=== PATIENT | female | born 1945 | race American Indian/Alaskan Native ===

== ENCOUNTER 2018-05-08 03:28 | Inpatient (IN) | payer MEDICARE, OTHER ==
--- NOTE | 2018-05-08 04:13 | C.PDOC ---
History Of Present Illness 72 year old female with PMHx of HTN presents to the ED c/o chest pain and abdominal pain that started tonight at 12 midnight. Patient states she woke up from sleep with chest pain, abdominal pain associated with nausea, vomiting. Patient reports this is the first time she has these symptoms. Patient past surgeries consist of hysterectomy and gallstones removal. Patient currently taking Lisinopril. Patient denies fever, chill, diarrhea, back pain, dysuria, hematuria. Time Seen by Provider: 05/08/18 03:32 Chief Complaint (Nursing): Chest Pain History Per: Patient History/Exam Limitations: no limitations Onset/Duration Of Symptoms: Hrs (midnight) Current Symptoms Are (Timing): Still Present Quality: "Pain" Associated Symptoms: Nausea Modifying Factors: None Exacerbating Factors: None Additional History Per: Patient Past Medical History Reviewed: Historical Data, Nursing Documentation, Vital Signs Vital Signs: Last Vital Signs Temp 97.6 F 05/08/18 03:36 Pulse 89 05/08/18 06:22 Resp 24 05/08/18 06:22 BP 181/75 H 05/08/18 06:22 Pulse Ox 98 05/08/18 06:48 - Medical History PMH: Gall Bladder Disease, HTN Denies: Chronic Kidney Disease Other Surgeries: hysterectomy, gallstones Family History: States: Unknown Family Hx - Social History Hx Alcohol Use: No Hx Substance Use: No - Immunization History Hx Tetanus Toxoid Vaccination: No Hx Influenza Vaccination: No Hx Pneumococcal Vaccination: No Review Of Systems Constitutional: Negative for: Fever, Chills Cardiovascular: Positive for: Chest Pain. Negative for: Palpitations Respiratory: Negative for: Cough, Shortness of Breath Gastrointestinal: Positive for: Nausea, Vomiting, Abdominal Pain. Negative for : Diarrhea Genitourinary: Negative for: Dysuria, Hematuria Musculoskeletal: Negative for: Back Pain Skin: Negative for: Rash Neurological: Negative for: Weakness, Numbness, Headache, Dizziness Physical Exam - Physical Exam Appears: Non-toxic, No Acute Distress Skin: Normal Color, Warm, Dry Head: Atraumatic, Normacephalic Eye(s): bilateral: Normal Inspection Oral Mucosa: Moist Neck: Normal ROM, Supple Chest: Symmetrical, Tenderness (anterior chest wall) Cardiovascular: Rhythm Regular Respiratory: Normal Breath Sounds, No Rales, No Rhonchi, No Wheezing Gastrointestinal/Abdominal: Soft, Tenderness (epigastrum), No Guarding, No Rebound Extremity: Normal ROM, No Tenderness, No Swelling Neurological/Psych: Oriented x3, Normal Speech Gait: Steady ED Course And Treatment - Laboratory Results Result Diagrams: 05/08/18 04:32 05/08/18 04:32 ECG: Interpreted By Me, Viewed By Me ECG Rhythm: Sinus Rhythm Interpretation Of ECG: no ischemic changes. NJ- 166. QRS - 80. Qt/Qtc - 396/ 489. P-r-t - 47 11 41 Rate From EC (BPM) O2 Sat by Pulse Oximetry: 98 (ON RA) Pulse Ox Interpretation: Normal - Radiology CXR: Interpreted by Me, Viewed By Me CXR Interpretation: Yes: Mediastinum (slightly wide), Other (pleural effusion on the right ). No: Infiltrates - CT Scan/US CTA chest.abd Other Rad Studies (CT/US): Read By Radiologist, Radiology Report Reviewed CT/US Interpretation: EXAM: CT Angiography Chest With and without Intravenous Contrast. CLINICAL HISTORY: 72 years old, female; Pain; Chest pain; Abdominal pain; Epigastric; Additional info: Abd pain. TECHNIQUE: Axial computed tomographic angiography images of the chest with and without intravenous contrast. using CT angiography protocol. [address] All [address] scans at this facility use at least one of these dose optimization techniques: automated. exposure control; mA and/or kV adjustment per patient size ( includes targeted exams where dose is. matched to clinical indication); or iterative reconstruction. Coronal and sagittal reformatted images were created and reviewed. MIP reconstructed images were created and reviewed. COMPARISON: No relevant prior studies available. FINDINGS: Other findings: Trace pericardial effusion. The aorta demonstrates calcified plaque and is mildly. ectatic but normal in caliber. Pulmonary arteries: The pulmonary artery enhancement is less than 195 Hounsfield units without. definite filling defect to suggest pulmonary embolus. Lungs: Mild parabronchial cuffing, hazy infiltration of the lung bases which can be seen with. bronchitis, reactive airway disease or viral pneumonitis versus mild failure. COPD. IMPRESSION: 1. Mild parabronchial cuffing, hazy infiltration of the lung bases which can be seen with bronchitis,. reactive airway disease or viral pneumonitis versus mild failure. 2. The pulmonary artery enhancement is less than 195 Hounsfield units without definite filling defect. to suggest pulmonary embolus. CLARK PEGUERO | Preliminary Radiology Report. EXAM: CT Angiography Abdomen and Pelvis Without And With Intravenous Contrast. EXAM DATE/TIME: 05/08/2018 4:05 AM. CLINICAL HISTORY: 72 years old, female; Pain; Chest pain; Abdominal pain; Epigastric; Additional info: Abd pain. TECHNIQUE: Axial computed tomographic angiography images of the abdomen and pelvis without and with. intravenous contrast material, including non-contrast images if performed. MIP and/or 3D reconstructed images were created and reviewed. All CT scans at this facility use at least one of these dose optimization techniques: automated. exposure control; mA and/or kV adjustment per patient size (includes targeted exams where dose is. matched to clinical indication); or iterative reconstruction. Coronal and sagittal reformatted images were created and reviewed. MIP reconstructed images were created and reviewed. 971 images are submitted. COMPARISON: No relevant prior studies available. FINDINGS: Lungs: Normal. No consolidation. VASCULATURE: Aorta: The aorta demonstrates calcified plaque and is mildly ectatic but normal in caliber. Celiac Trunk and Mesenteric Arteries: No occlusion or significant stenosis. Renal Arteries: No occlusion or significant stenosis. Iliac Arteries: No occlusion or significant stenosis. Common Femoral Arteries: No occlusion or significant stenosis. ABDOMEN: Liver: Fatty liver. Gallbladder and bile ducts: There are renal hypodensities too small to. characterize.Cholecystectomy. Pancreas: Unremarkable. No mass. No ductal dilation. Spleen: Unremarkable. No splenomegaly. Adrenals: Unremarkable. No mass. Kidneys and ureters: Unremarkable. No solid mass. No hydronephrosis. Stomach and bowel: There is left upper quadrant splenic flexure diverticulosis with minimal. haziness seen on image 99 series 6 suspicious for early acute diverticulitis. Appendix: The appendix demonstrates diffuse distention, consistent with acute appendicitis. The. appendix measures 1.1 cm cm with appendicolith. PELVIS: PEGUERO, CLARK | Preliminary Radiology Report. CONFIDENTIALITY STATEMENT. This report is intended only for the use of the referring physician, and only in accordance with law, If you received this in error, call [phone]. Page 3 of 3. Bladder: Urachal remanent involving the bladder dome. There is nonspecific bladder wall. thickening. This may be related to incomplete distention. Reproductive: Hysterectomy. ABDOMEN and PELVIS: Intraperitoneal space: Pelvic phleboliths. Bones/joints: Multilevel vacuum degenerative disc disease. Soft tissues: There is a fat-containing umbilical hernia. Lymph nodes : Unremarkable. No enlarged lymph nodes. IMPRESSION: 1. There is left upper quadrant splenic flexure diverticulosis with minimal haziness seen on image 99. series 6 suspicious for early acute diverticulitis. 2. The appendix demonstrates diffuse distention, consistent with acute appendicitis. The. appendix measures 1.1 cm cm with appendicolith. Thank you for allowing us to participate in the care of your patient. Dictated and Authenticated by: Traci Jackson MD. 05/08/2018 6:45 AM Eastern Time ([place] & [place]) Medical Decision Making Medical Decision Making: Plan: * CTA chest * CXR * Labs * white count 10.4 * HB - 13 * Bicarb - 21 * Fluids * Fentanyl 50 mcg IVP * UA * negative acute appendicitis on ct a/p; abx ordered; case discussed with surgical technologist Disposition Counseled Patient/Family Regarding: Diagnosis - Disposition Disposition: HOSPITALIZED Disposition Time: 06:56 Condition: GUARDED Forms: [employer] (Hungarian) - Clinical Impression Clinical Impression: Appendicitis - Scribe Statement The provider has reviewed the documentation as recorded by the Scribe Zachary Gmoez All medical record entries made by the Scribe were at my direction and personally dictated by me. I have reviewed the chart and agree that the record accurately reflects my personal performance of the history, physical exam, medical decision making, and the department course for this patient. I have also personally directed, reviewed, and agree with the discharge instructions and disposition.
[2018-05-08 04:39] LABS: BASO % 0.4 % (0.0-2.0); EOS % 0.1 % (0.0-4.0); LYMPH # 2.5 K/uL (1.0-4.3); LYMPH % 24.2 % (20.0-40.0); MEAN CELL VOLUME 93.7 fL (81.0-99.0); MEAN CORPUSCULAR HEMOGLOBIN 31.8 pg (27.0-31.0); MONO # 0.5 K/uL (0.0-0.8); NEUT # 7.3 K/uL (1.8-7.0); NEUT % 70.3 % (50.0-75.0); NRBC % 0.1 % (0.0-2.0); RBC 4.08 Mil/uL (3.80-5.20); RED CELL DISTRIBUTION WIDTH 14.5 % (11.5-14.5); WHITE BLOOD COUNT 10.4 K/uL (4.8-10.8)
[2018-05-08 04:40] LABS: SQUAMOUS EPITHIAL < 1 /hpf (0-5); URINE BACTERIA OCC (<OCC); URINE BILIRUBIN NEGATIVE (NEGATIVE); URINE BLOOD 1+ (NEGATIVE); URINE CLARITY Clear (Clear); URINE COLOR Yellow (YELLOW); URINE GLUCOSE (UA) NORMAL (Normal); URINE LEUKOCYTE ESTERASE NEG Leu/uL (Negative); URINE PROTEIN 1+ mg/dL (NEGATIVE); URINE UROBILINOGEN NORMAL mg/dL (0.2-1.0)
[2018-05-08 04:47] LABS: ALBUMIN 4.7 g/dL (3.5-5.0); ALT/SGPT 27 U/L (9-52); AST/SGOT 20 U/L (14-36); BLOOD UREA NITROGEN 13 mg/dL (7-17); CALCIUM 9.8 mg/dl (8.6-10.4); GFR NON-AFRICAN AMERICAN > 60; LIPASE 172 U/L (23-300)
[2018-05-08] MEDS ORDERED: Iodixanol 320 mg/ml 150 ml Bottle IV ONE (04:54)
[2018-05-08] MEDS ORDERED: metroNIDAZOLE IV 500 mg/100 ml 500 MG/100 ML BAG IVPB STA (06:55)
[2018-05-08] MEDS ORDERED: metroNIDAZOLE IV 500 mg/100 ml 500 MG/100 ML BAG ONE ×2 (07:06→15:20)
[2018-05-08] MEDS ORDERED: Labetalol 5mg/ml (4ml) IVP ONE (08:15)
--- NOTE | 2018-05-08 08:30 | CP.PCM.CON ---
<Kofi Brennan - Last Filed: 05/08/18 08:54> History of Present Illness - History of Present Illness History of Present Illness: Gen Sx Consult: Dr Watt Re: Appendicitis 70yo female with history of hypertension presents with new onset epigastric abdominal pain/discomfort predominating on left side and radiating to back. the discomfort began at around midnight last night, at which point patient went to have a bowel movement, the movement was normal, but the simultaneous discomfort brought on vomiting. Emesis consisted of previous meal and was non-billious with no blood. Patient states that she previously experience similar symptoms once before, but that it resolved on its own; this episode has lasted longer and will not go away. Nothing seems to make it better or worse. The only intervention that the patient has made is massage of the affected area. Patient denies fever, but does admit to feeling a little chilled. She also admits to headache an light headedness with standing, as well as increased urinary frequency. She denies palpitations, difficulty breathing, diarrhea, constipation , numbness/tingling. Patient's last oral intake was a 7pm last night, she denies eating any new/unusual foods and any recent travel. CT scan in ED demonstrated inflammation of splenic flexure as well as dilated and inflammed appendix 1.1cm with appendicolith PMHx: Hypertension PSHx: hysterectomy, cholecystectomy Family Hx: Sisters- DM, ovarian cancer, colon cancer, breast cancer Social Hx: denies ETOH, tobacco, and Drug use Home Meds: Asprin, Lisinopril Allergies: noncontributory Review of Systems - Review of Systems All systems: reviewed and no additional remarkable complaints except (as per hpi ) - Cardiovascular Cardiovascular: absent: Chest Pain, Palpitations - Respiratory Respiratory: absent: Dyspnea - Gastrointestinal Gastrointestinal: Abdominal Pain, Vomiting. absent: Constipation, Diarrhea, Hematemesis - Genitourinary Genitourinary: Urinary Frequency - Musculoskeletal Additional comments: Pain on T7 spinous processes and paraspinal muscles at that level Past Patient History - Infectious Disease Hx of Infectious Diseases: None - Past Social History Smoking Status: Never Smoked - CARDIAC Hx Hypertension: Yes - PULMONARY Hx Respiratory Disorders: No - NEUROLOGICAL Hx Neurological Disorder: No - HEENT Hx HEENT Problems: No - RENAL Hx Chronic Kidney Disease: No - ENDOCRINE/METABOLIC Hx Endocrine Disorders: No - HEMATOLOGICAL/ONCOLOGICAL Hx Blood Disorders: No - INTEGUMENTARY Hx Dermatological Problems: No - MUSCULOSKELETAL/RHEUMATOLOGICAL Hx Musculoskeletal Disorders: No - GASTROINTESTINAL Hx Gall Bladder Disease: Yes - GENITOURINARY/GYNECOLOGICAL Hx Genitourinary Disorders: No - PSYCHIATRIC Hx Substance Use: No - SURGICAL HISTORY Hx Surgeries: Yes Hx Hysterectomy: Yes Other/Comment: GALLSTONES REMOVED - ANESTHESIA Hx Anesthesia: Yes Meds Home Medications: Home Medication List Medication Instructions Recorded Confirmed Type Ciprofloxacin/Ciprofloxa HCl 500 mg PO BID #16 tbmp.24hr 05/09/18 Rx [Cipro Xr 500 mg Tablet] Metronidazole [Flagyl] 500 mg PO BID #16 tablet 05/09/18 Rx Allergies/Adverse Reactions: Allergies Allergy/AdvReac Type Severity Reaction Status Date / Time No Known Allergies Allergy Unverified 05/08/18 03:39 Physical Exam - Constitutional Appears: No Acute Distress - Head Exam Head Exam: ATRAUMATIC, NORMAL INSPECTION, NORMOCEPHALIC - Eye Exam Eye Exam: Normal appearance - ENT Exam ENT Exam: Mucous Membranes Moist - Respiratory Exam Respiratory Exam: Clear to Auscultation Bilateral, NORMAL BREATHING PATTERN. absent: Rales, Rhonchi, Wheezes, Respiratory Distress - Cardiovascular Exam Cardiovascular Exam: REGULAR RHYTHM, +S1, +S2. absent: Tachycardia, Rubs - GI/Abdominal Exam GI & Abdominal Exam: Normal Bowel Sounds, Soft, Tenderness. absent: Rebound, Rigid Additional comments: Tenderness to deep palpation in RLQ, and mild tenderness in left epigastrium - rebound, -rovsings, -psoas - Extremities Exam Extremities exam: Negative for: pedal edema - Back Exam Back exam: paraspinal tenderness, tenderness Additional comments: Tenderness at level of T7 - Psychiatric Exam Psychiatric exam: Normal Affect, Normal Mood - Skin Skin Exam: Dry, Normal Color, Warm Results - Vital Signs Recent Vital Signs: Last Vital Signs Temp 97.6 F 05/08/18 03:36 Pulse 90 05/08/18 08:01 Resp 16 05/08/18 08:01 BP 185/74 H 05/08/18 08:01 Pulse Ox 96 05/08/18 08:01 - Labs Result Diagrams: 05/08/18 04:32 05/08/18 04:32 Labs: Laboratory Results - last 24 hr 09/11/18 09/11/18 09/11/18 04:32 04:32 04:32 WBC 10.4 RBC 4.08 Hgb 13.0 Hct 38.2 MCV 93.7 MCH 31.8 H MCHC 34.0 RDW 14.5 Plt Count 199 MPV 9.0 Neut % (Auto) 70.3 Lymph % (Auto) 24.2 Ellis % (Auto) 5.0 Eos % (Auto) 0.1 Baso % (Auto) 0.4 Neut # (Auto) 7.3 H Lymph # (Auto) 2.5 Ellis # (Auto) 0.5 Eos # (Auto) 0.0 Baso # (Auto) 0.0 Sodium 140 Potassium 4.6 Chloride 104 Carbon Dioxide 21 L Anion Gap 20 BUN 13 Creatinine 0.9 Est GFR ( Amer) > 60 Est GFR (Non-Af Amer) > 60 Random Glucose 159 H Calcium 9.8 Total Bilirubin 0.4 AST 20 ALT 27 Alkaline Phosphatase 82 Troponin I < 0.0120 NT-Pro-B Natriuret Pep 66.0 Total Protein 9.3 H Albumin 4.7 Globulin 4.7 H Albumin/Globulin Ratio 1.0 Lipase 172 Urine Color Yellow Urine Clarity Clear Urine pH 8.0 Ur Specific [place] 1.015 Urine Protein 1+ H Urine Glucose (UA) Normal Urine Ketones Trace Urine Blood 1+ H Urine Nitrate Negative Urine Bilirubin Negative Urine Urobilinogen Normal Ur Leukocyte Esterase Neg Urine WBC (Auto) < 1 Urine RBC (Auto) 6 H Ur Squamous Epith Cells < 1 Urine Bacteria Occ H Assessment & Plan - Assessment and Plan (Free Text) Assessment: 70yo female with acute appendicitis Plan: Admit to medicine NPO IV fluids IV abx optimize BP OR this afternoon for lap appendectomy d/w Dr Alysa Brennan, PGy4 <Vicente Watt B - Last Filed: 05/13/18 13:49> Results - Vital Signs Recent Vital Signs: Last Vital Signs Temp 98.5 F 05/09/18 07:00 Pulse 86 05/09/18 09:04 Resp 20 05/09/18 07:00 BP 146/74 05/09/18 09:04 Pulse Ox 99 05/09/18 07:00 - Labs Result Diagrams: 05/09/18 08:16 05/09/18 08:16 Attending/Attestation - Attestation I have personally seen and examined this patient.: Yes I have fully participated in the care of the patient.: Yes I have reviewed all pertinent clinical information: Yes Notes (Text): Pt was seen and examined at bedside Agree with above note and assessment Pt with RLQ pain and nausea Abdomen : soft, tender in RLQ Labs and radiology reviewed Ass: Acute Appendicitis with Leucocytosis Plan : Lap Appendectomy possible Open Consent NPO, IVF IV antibiotics Plan d.w pt in detail Risk and benefit explained in detail.
[2018-05-08] MEDS ORDERED: Metoprolol 1 mg/ml Inj IVP PRN (09:53)
[2018-05-08] MEDS ORDERED: Dextrose 50% SYRINGE Inj (50 ml) IV PRN (09:57)
[2018-05-08] MEDS ORDERED: Glucagon Recombinant 1 mg Inj IM PRN (09:57)
[2018-05-08] MEDS ORDERED: Dextrose 50% SYRINGE Inj (50 ml) IVP PRN (09:57)
[2018-05-08 10:06] LABS: INR 1.1
[2018-05-08] MEDS: Sodium Chloride 0.9% 1,000 ML IV SCH (10:22)
[2018-05-08 10:56] LABS: CK-MB 1.26 ng/mL (0.0-3.38); TROPONIN I 0.039 ng/mL (0.00-0.120)
--- NOTE | 2018-05-08 11:08 | CT ---
Date of service: 05/08/18 CTA chest, abdomen, pelvis protocol Indication: Abdominal pain Technique: Contiguous axial images were obtained through the chest, abdomen, pelvis with intravenous contrast enhancement. Sagittal and coronal reconstructions were generated and reviewed. This CT exam was performed using 1 or more of the following dose reduction techniques: Automated exposure control, adjustment of the MAA and/or kV according to patient size, and/or use of iterative reconstruction technique. IV Contrast: 100 mL Visipaque Radiation dose (DLP): 2437.71 MGy-cm. Comparison: No prior Findings: Visualized portions of the inferior thyroid gland appear unremarkable. The mediastinal and hilar vascular structures appear within normal limits. The heart appears within normal limits of size. The pulmonary artery enhancement is less than 195 HU. No definite filling defect to suggest central pulmonary embolus. Mild peribronchial coughing, hazy infiltration of the lung bases which may be seen with bronchitis, reactive airway disease, or viral pneumonitis versus mild CHF. Mild bibasilar atelectasis. No pleural effusion. No pneumothorax. Atherosclerotic calcifications of thoracic and abdominal aorta and branches. No evidence of aneurysmal dilatation the aorta or dissection. No occlusion or significant stenosis is identified involving the celiac artery origin, the superior mesenteric artery origin, the inferior mesenteric artery origin, or bilateral renal arteries. Cholecystectomy. The liver, pancreas, spleen, and adrenal glands appear unremarkable. The kidneys enhance symmetrically. No hydronephrosis or obstructing calculus identified. Bowel loops appear within normal limits of caliber. Diverticulosis with minimal haziness in the left upper quadrant near the splenic flexure ; correlate for possibility of early acute diverticulitis. No secondary signs of acute appendicitis. Dilated appendix measuring approximately 1.1 cm. Appendicolith present. Appearance consistent with acute appendicitis. Small fat containing umbilical hernia. The uterus is absent consistent with hysterectomy. Urinary bladder is under distended. Urachal remnant. Degenerative changes. Impression: Findings consistent with acute appendicitis as above. Question mild early acute diverticulitis. Urachal remnant.Patients with a urachal remnant are at increased risk for adenocarcinoma of the bladder. The pulmonary artery enhancement is less than 195 HU. No definite filling defect to suggest central pulmonary embolus. Mild peribronchial coughing, hazy infiltration of the lung bases which may be seen with bronchitis, reactive airway disease, or viral pneumonitis versus mild CHF. Additional findings as above. Preliminary impression was provided by virtual radiologic.
--- NOTE | 2018-05-08 11:25 | RAD ---
HISTORY: abd pain COMPARISON: None available. TECHNIQUE: Chest, one view. FINDINGS: Examination markedly limited by habitus. LUNGS: Mild bibasilar atelectasis. Mild prominent interstitial markings. Please note that chest x-ray has limited sensitivity for the detection of pulmonary masses. PLEURA: No significant pleural effusion identified. No definite pneumothorax . CARDIOVASCULAR: Heart size appears borderline. Ectatic aorta. Atherosclerotic calcifications of the aorta. OSSEOUS STRUCTURES: Degenerative changes. VISUALIZED UPPER ABDOMEN: Unremarkable. OTHER FINDINGS: None. IMPRESSION: Mildly prominent interstitial markings. Mild bibasilar atelectasis.
--- NOTE | 2018-05-08 12:37 | CARD ---
APPROVED REPORT Date of service: 05/08/2018 EXAM: Two-dimensional and M-mode echocardiogram with Doppler and color Doppler. Other Information Quality : GoodRhythm : INDICATION Pericardial Effusion Pre-Op RISK FACTORS Hypertension 2D DIMENSIONS IVSd1.1 (0.7-1.1cm)LVDd3.3 (3.9-5.9cm) PWd1.2 (0.7-1.1cm)LVDs2.3 (2.5-4.0cm) FS (%) 31.3 %LVEF (%)60.4 (>50%) M-Mode DIMENSIONS Left Atrium (MM)3.72 (2.5-4.0cm)IVSd0.80 (0.7-1.1cm) Aortic Root3.42 (2.2-3.7cm)LVDd4.12 (4.0-5.6cm) Aortic Cusp Exc.2.09 (1.5-2.0cm)PWd0.95 (0.7-1.1cm) FS (%) 39 %LVDs2.53 (2.0-3.8cm) LVEF (%)69 (>50%) Mitral Valve MV E Wyfhtupb53.4cm/sMV A Rhixemen193.5cm/sE/A ratio0.6 TDI E/Lateral E'0.0E/Medial E'0.0 Tricuspid Valve TR Peak [id number]/sTR Peak Gr.[id number] LEFT VENTRICLE The left ventricle is normal size. There is normal left ventricular wall thickness. The left ventricular function is normal. The left ventricular ejection fraction is within the normal range. There is normal LV segmental wall motion. Transmitral Doppler flow pattern is Grade I-abnormal relaxation pattern. No left ventricle thrombus noted on this study. There is no ventricular septal defect visualized. There is no left ventricular aneurysm. There is no mass noted in the left ventricle. RIGHT VENTRICLE The right ventricle is normal size. There is normal right ventricular wall thickness. The right ventricular systolic function is normal. ATRIA The left atrium size is normal. The right atrium size is normal. AORTIC VALVE The aortic valve is calcified but opens well. No aortic regurgitation is present. There is no aortic valvular stenosis. There is no aortic valvular vegetation. MITRAL VALVE The mitral valve is normal in structure. There is no mitral valve stenosis. There is no mitral valve regurgitation noted. TRICUSPID VALVE The tricuspid valve is normal in structure. There is no tricuspid valve regurgitation noted. PULMONIC VALVE The pulmonary valve is normal in structure. There is no pulmonic valvular regurgitation. GREAT VESSELS The aortic root is normal in size. The ascending aorta is normal in size. The pulmonary artery is normal. The IVC is normal in size and collapses >50% with inspiration. PERICARDIAL EFFUSION There is no pericardial effusion. <Conclusion> The left ventricular function is normal. The left ventricular ejection fraction is within the normal range. Transmitral Doppler flow pattern is Grade I-abnormal relaxation pattern. There is no pericardial effusion. LVEF IS 70%.
[2018-05-08] MEDS: (Novolog) Insulin Aspart, Recombinant 100 u/ml 10 ml vial SC SCH (12:40)
[2018-05-08] MEDS ORDERED: Piperacillin/Tazobact 3.375 gm 100 ML IVPB ONE (12:44)
[2018-05-08] MEDS: Piperacill/Tazo 3.375gm in Dex 3.375 GM/50 ML BAG IVPB SCH ×2 (12:46→18:00)
--- NOTE | 2018-05-08 13:07 | CP.PCM.HP ---
<Brian Sesay - Last Filed: 05/08/18 14:34> History of Present Illness - History of Present Illness History of Present Illness: Patient is a 72 yo obese F with PMHx of HTN presenting to the ED with acute onset L sided chest pain and generalized abdominal pain/ discomfort predominately on the L. As per patient, the chest/abdominal pain began last night around midnight, was described as dull and intermittent, non- radiating, rated 6/10. She went to pass a BM shortly after the onset of the pain , passed the BM normally, but had 1 episode of vomiting brought on by her abdominal discomfort. She also endorses associated nausea and 1 additional episode of vomiting upon arrival. Emesis consisted of previous meal and was non- bilious, non-bloody. Of note, patient states she had a similar episode once ~ 2 years ago that resolved on its own. This episode has lasted longer and is not alleviated by any positional changes. She denies fevers but endorses feeling a little chilled. She also endorses a mild headache. No changes in vision, dizziness or lightheadedness, numbness or tingling, diarrhea/constipation, shortness of breath, cough, dysuria, or changes in stool. PMHx: HTN PSHx: hysterectomy, cholecystectomy Home Medications: Lisinopril 10 mg PO daily, Aspirin 81 mg PO daily Allergies: NKDA Social Hx: Lives with her nephew, independent with all ADLs. Denies alcohol, tobacco, illicit drug use. Family Hx: Sisters-colon cancer, breast, cancer, ovarian cancer, DM PMD: Dr. Mable Buck Advanced Directives: None Proxy: Christina, daughter -- Present on Admission - Present on Admission Any Indicators Present on Admission: No Review of Systems - Constitutional Constitutional: As Per HPI, Chills, Headache. absent: Fatigue, Fever, Weakness - EENT Eyes: As Per HPI. absent: Blurred Vision, Change in Vision, Loss of Vision - Cardiovascular Cardiovascular: As Per HPI, Chest Pain (generalized L sided chest pain). absent : Diaphoresis, Dyspnea, Dyspnea on Exertion, Edema, Lightheadedness, Palpitations, Pedal Edema, Radiating Pain, Syncope - Respiratory Respiratory: As Per HPI. absent: Cough, Dyspnea, Hemoptysis, Wheezing, Stridor - Gastrointestinal Gastrointestinal: As Per HPI, Abdominal Pain (Predominately R sided abdominal pain, mild L sided pain), Nausea, Vomiting. absent: Change in Bowel Habits, Diarrhea - Genitourinary Genitourinary: As Per HPI. absent: Difficulty Urinating, Dysuria, Flank Pain, Hematuria, Urinary Incontinence - Musculoskeletal Musculoskeletal: As Per HPI, Back Pain. absent: Muscle Weakness, Numbness, Stiffness, Tingling - Neurological Neurological: As Per HPI, Headaches. absent: Abnormal Movements, Behavioral Changes, Confusion, Dizziness, Numbness, Focal Weakness, Loss of Vision, Radicular Pain, Sensory Deficit, Syncope, Tingling, Tremor, Weakness Past Patient History - Infectious Disease Hx of Infectious Diseases: None - Past Social History Smoking Status: Never Smoked - CARDIAC Hx Hypertension: Yes - PULMONARY Hx Respiratory Disorders: No - NEUROLOGICAL Hx Neurological Disorder: No - HEENT Hx HEENT Problems: No - RENAL Hx Chronic Kidney Disease: No - ENDOCRINE/METABOLIC Hx Endocrine Disorders: No - HEMATOLOGICAL/ONCOLOGICAL Hx Blood Disorders: No - INTEGUMENTARY Hx Dermatological Problems: No - MUSCULOSKELETAL/RHEUMATOLOGICAL Hx Musculoskeletal Disorders: No - GASTROINTESTINAL Hx Gall Bladder Disease: Yes - GENITOURINARY/GYNECOLOGICAL Hx Genitourinary Disorders: No - PSYCHIATRIC Hx Substance Use: No - SURGICAL HISTORY Hx Surgeries: Yes Hx Hysterectomy: Yes Other/Comment: GALLSTONES REMOVED - ANESTHESIA Hx Anesthesia: Yes Meds Allergies/Adverse Reactions: Allergies Allergy/AdvReac Type Severity Reaction Status Date / Time No Known Allergies Allergy Unverified 05/08/18 03:39 Physical Exam - Constitutional Appears: Non-toxic, No Acute Distress - Head Exam Head Exam: ATRAUMATIC, NORMAL INSPECTION, NORMOCEPHALIC - Eye Exam Eye Exam: EOMI, Normal appearance - ENT Exam ENT Exam: Mucous Membranes Moist, Normal Exam - Neck Exam Neck exam: Positive for: Normal Inspection - Respiratory Exam Respiratory Exam: Clear to Auscultation Bilateral, NORMAL BREATHING PATTERN. absent: Rales, Rhonchi, Wheezes - Cardiovascular Exam Cardiovascular Exam: REGULAR RHYTHM, +S1, +S2 - GI/Abdominal Exam GI & Abdominal Exam: Normal Bowel Sounds, Soft, Tenderness (mild TTP RUQ, mod TTP RLQ, mild TTP LUQ). absent: Distended, Firm, Guarding, Mass, Organomegaly Additional comments: +McBurney's Point Tenderness, + Psoas Sign, (-) Rovsing - Extremities Exam Extremities exam: Positive for: normal capillary refill, normal inspection, pedal pulses present. Negative for: pedal edema, tenderness - Back Exam Back exam: NORMAL INSPECTION - Neurological Exam Neurological exam: Alert, Oriented x3 - Psychiatric Exam Psychiatric exam: Normal Affect, Normal Mood - Skin Skin Exam: Dry, Intact, Normal Color, Warm Results - Vital Signs Recent Vital Signs: Last Vital Signs Temp 98.1 F 05/08/18 12:25 Pulse 92 H 05/08/18 12:25 Resp 16 05/08/18 12:25 BP 168/83 H 05/08/18 12:25 Pulse Ox 97 05/08/18 12:25 - Labs Result Diagrams: 05/08/18 04:32 05/08/18 04:32 Labs: Laboratory Results - last 24 hr 05/08/18 05/08/18 05/08/18 04:32 04:32 04:32 WBC 10.4 RBC 4.08 Hgb 13.0 Hct 38.2 MCV 93.7 MCH 31.8 H MCHC 34.0 RDW 14.5 Plt Count 199 MPV 9.0 Neut % (Auto) 70.3 Lymph % (Auto) 24.2 [place] % (Auto) 5.0 Eos % (Auto) 0.1 Baso % (Auto) 0.4 Neut # (Auto) 7.3 H Lymph # (Auto) 2.5 [place] # (Auto) 0.5 Eos # (Auto) 0.0 Baso # (Auto) 0.0 PT INR APTT Sodium 140 Potassium 4.6 Chloride 104 Carbon Dioxide 21 L Anion Gap 20 BUN 13 Creatinine 0.9 Est GFR ( Amer) > 60 Est GFR (Non-Af Amer) > 60 POC Glucose (mg/dL) Random Glucose 159 H Hemoglobin A1c Calcium 9.8 Total Bilirubin 0.4 AST 20 ALT 27 Alkaline Phosphatase 82 Total Creatine Kinase CK-MB (Mass) Troponin I < 0.0120 NT-Pro-B Natriuret Pep 66.0 Total Protein 9.3 H Albumin 4.7 Globulin 4.7 H Albumin/Globulin Ratio 1.0 Lipase 172 Urine Color Yellow Urine Clarity Clear Urine pH 8.0 Ur Specific [place] 1.015 Urine Protein 1+ H Urine Glucose (UA) Normal Urine Ketones Trace Urine Blood 1+ H Urine Nitrate Negative Urine Bilirubin Negative Urine Urobilinogen Normal Ur Leukocyte Esterase Neg Urine WBC (Auto) < 1 Urine RBC (Auto) 6 H Ur Squamous Epith Cells < 1 Urine Bacteria Occ H 05/08/18 05/08/18 05/08/18 09:48 10:20 10:20 WBC RBC Hgb Hct MCV MCH MCHC RDW Plt Count MPV Neut % (Auto) Lymph % (Auto) [place] % (Auto) Eos % (Auto) Baso % (Auto) Neut # (Auto) Lymph # (Auto) [place] # (Auto) Eos # (Auto) Baso # (Auto) PT 12.0 INR 1.1 APTT 31 Sodium Potassium Chloride Carbon Dioxide Anion Gap BUN Creatinine Est GFR ( Amer) Est GFR (Non-Af Amer) POC Glucose (mg/dL) Random Glucose Hemoglobin A1c 5.7 Calcium Total Bilirubin AST ALT Alkaline Phosphatase Total Creatine Kinase 103 CK-MB (Mass) 1.26 Troponin I 0.0390 NT-Pro-B Natriuret Pep Total Protein Albumin Globulin Albumin/Globulin Ratio Lipase Urine Color Urine Clarity Urine pH Ur Specific [place] Urine Protein Urine Glucose (UA) Urine Ketones Urine Blood Urine Nitrate Urine Bilirubin Urine Urobilinogen Ur Leukocyte Esterase Urine WBC (Auto) Urine RBC (Auto) Ur Squamous Epith Cells Urine Bacteria 05/08/18 10:20 WBC RBC Hgb Hct MCV MCH MCHC RDW Plt Count MPV Neut % (Auto) Lymph % (Auto) [place] % (Auto) Eos % (Auto) Baso % (Auto) Neut # (Auto) Lymph # (Auto) [place] # (Auto) Eos # (Auto) Baso # (Auto) PT INR APTT Sodium Potassium Chloride Carbon Dioxide Anion Gap BUN Creatinine Est GFR ( Amer) Est GFR (Non-Af Amer) POC Glucose (mg/dL) 127 H Random Glucose Hemoglobin A1c Calcium Total Bilirubin AST ALT Alkaline Phosphatase Total Creatine Kinase CK-MB (Mass) Troponin I NT-Pro-B Natriuret Pep Total Protein Albumin Globulin Albumin/Globulin Ratio Lipase Urine Color Urine Clarity Urine pH Ur Specific [place] Urine Protein Urine Glucose (UA) Urine Ketones Urine Blood Urine Nitrate Urine Bilirubin Urine Urobilinogen Ur Leukocyte Esterase Urine WBC (Auto) Urine RBC (Auto) Ur Squamous Epith Cells Urine Bacteria Assessment & Plan - Assessment and Plan (Free Text) Assessment: 70 yo obese F with PMHx of HTN presenting with L sided chest pain, generalized abdominal pain in the setting of acute appendicitis. Plan: Chest Pain, r/o CAD -chest pain is dull, intermittent, non-radiating. Resolved upon examination, likely secondary to pain -afebrile, BP 180/89 on admission -ED course: Fentanyl 50 mcg x1, labetalol 5 mg x1 -EKG: NSR -JENIFER x2 negative -Hb/Hct: 13/38.2 -BNP: 66.0 -PT/INR: 08/27 -f/u JENIFER #3 -f/u repeat EKG -Cardiology (Dr. Spangler) on board Imaging: -CXR: mild interstitial markings, mild bibasilar atelectasis -CTA abdomen/pelvis: LUQ splenic flexure diverticulosis, suspicion of early acute diverticulitis; diffuse distention of appendix, 1.1 cm with appendicolith present -ECHO: LVEF of 70%, no pericardial effusion Medications: -Morphine 2 mg IVP q4 PRN -Morphine 1 mg IVP q4 PRN -Lopressor 5 mg IVP q6 PRN -0.9 NS @ 50cc/hr Generalized abdominal pain-- 2/2 acute appendicitis -CTA abdomen/pelvis: LUQ splenic flexure diverticulosis, suspicion of early acute diverticulitis; diffuse distention of appendix, 1.1 cm with appendicolith present -Lipase: 172 -ED course: rocephin x1, flagyl x1, zofran x1 -GI (Dr. Hampton) on board -Surgery (Dr. Watt) recs appreciated -keep NPO -optimize BP -OR this afternoon for laparascopic appendectomy *Patient is medium-risk individual for noncardiac surgery given age and history of diabetes and HTN. Surgery and anesthesia to discuss risk and benefits of procedure prior to OR. Medications -Flagyl 500 mg IVPB q8 -Zosyn 3.375 gm IVPB q6 -Morphine 2 mg IVP q4 prn -Morphine 1 mg IVP q4 prn Diverticulosis, +/- early acute diverticulitis -Pt is afebrile,WBC 10.4, + nausea/vomiting, + L sided abdominal pain -CTA abdomen/pelvis: LUQ splenic flexure diverticulosis, suspicion of early acute diverticulitis; diffuse distention of appendix, 1.1 cm with appendicolith present -GI (Dr. Hampton) on board HTN BP 180/89 on admission -labetalol 5 mg x 1 in ED Medications: -lopresor 5 mg IVP q6 PRN Uncontrolled hyperglycemia -Random glucose: 159 -HbA1C: 5.9 -low dose ISS -hypoglycemic protocol PPx, Diet, Disposition -keep NPO -OR this afternoon for lap appendectomy *Patient is medium-risk individual for noncardiac surgery given age and history of diabetes and HTN. Surgery and anesthesia to discuss risk and benefits of procedure prior to OR. Case discussed with Dr. Gilmar Sesay DO, PGY-1 <Adele Schafer V - Last Filed: 05/08/18 21:22> Results - Vital Signs Recent Vital Signs: Last Vital Signs Temp 97.8 F 05/08/18 16:47 Pulse 89 05/08/18 17:20 Resp 10 L 05/08/18 17:20 BP 176/88 H 05/08/18 17:20 Pulse Ox 100 05/08/18 17:20 - Labs Result Diagrams: 05/08/18 04:32 05/08/18 04:32 Labs: Laboratory Results - last 24 hr 05/08/18 05/08/18 05/08/18 04:32 04:32 04:32 WBC 10.4 RBC 4.08 Hgb 13.0 Hct 38.2 MCV 93.7 MCH 31.8 H MCHC 34.0 RDW 14.5 Plt Count 199 MPV 9.0 Neut % (Auto) 70.3 Lymph % (Auto) 24.2 [place] % (Auto) 5.0 Eos % (Auto) 0.1 Baso % (Auto) 0.4 Neut # (Auto) 7.3 H Lymph # (Auto) 2.5 [place] # (Auto) 0.5 Eos # (Auto) 0.0 Baso # (Auto) 0.0 PT INR APTT Sodium 140 Potassium 4.6 Chloride 104 Carbon Dioxide 21 L Anion Gap 20 BUN 13 Creatinine 0.9 Est GFR ( Amer) > 60 Est GFR (Non-Af Amer) > 60 POC Glucose (mg/dL) Random Glucose 159 H Hemoglobin A1c Calcium 9.8 Total Bilirubin 0.4 AST 20 ALT 27 Alkaline Phosphatase 82 Total Creatine Kinase CK-MB (Mass) Troponin I < 0.0120 NT-Pro-B Natriuret Pep 66.0 Total Protein 9.3 H Albumin 4.7 Globulin 4.7 H Albumin/Globulin Ratio 1.0 Lipase 172 Urine Color Yellow Urine Clarity Clear Urine pH 8.0 Ur Specific [place] 1.015 Urine Protein 1+ H Urine Glucose (UA) Normal Urine Ketones Trace Urine Blood 1+ H Urine Nitrate Negative Urine Bilirubin Negative Urine Urobilinogen Normal Ur Leukocyte Esterase Neg Urine WBC (Auto) < 1 Urine RBC (Auto) 6 H Ur Squamous Epith Cells < 1 Urine Bacteria Occ H 05/08/18 05/08/18 05/08/18 09:48 10:20 10:20 WBC RBC Hgb Hct MCV MCH MCHC RDW Plt Count MPV Neut % (Auto) Lymph % (Auto) [place] % (Auto) Eos % (Auto) Baso % (Auto) Neut # (Auto) Lymph # (Auto) [place] # (Auto) Eos # (Auto) Baso # (Auto) PT 12.0 INR 1.1 APTT 31 Sodium Potassium Chloride Carbon Dioxide Anion Gap BUN Creatinine Est GFR ( Amer) Est GFR (Non-Af Amer) POC Glucose (mg/dL) Random Glucose Hemoglobin A1c 5.7 Calcium Total Bilirubin AST ALT Alkaline Phosphatase Total Creatine Kinase 103 CK-MB (Mass) 1.26 Troponin I 0.0390 NT-Pro-B Natriuret Pep Total Protein Albumin Globulin Albumin/Globulin Ratio Lipase Urine Color Urine Clarity Urine pH Ur Specific [place] Urine Protein Urine Glucose (UA) Urine Ketones Urine Blood Urine Nitrate Urine Bilirubin Urine Urobilinogen Ur Leukocyte Esterase Urine WBC (Auto) Urine RBC (Auto) Ur Squamous Epith Cells Urine Bacteria 05/08/18 05/08/18 10:20 17:21 WBC RBC Hgb Hct MCV MCH MCHC RDW Plt Count MPV Neut % (Auto) Lymph % (Auto) [place] % (Auto) Eos % (Auto) Baso % (Auto) Neut # (Auto) Lymph # (Auto) [place] # (Auto) Eos # (Auto) Baso # (Auto) PT INR APTT Sodium Potassium Chloride Carbon Dioxide Anion Gap BUN Creatinine Est GFR ( Amer) Est GFR (Non-Af Amer) POC Glucose (mg/dL) 127 H 117 H Random Glucose Hemoglobin A1c Calcium Total Bilirubin AST ALT Alkaline Phosphatase Total Creatine Kinase CK-MB (Mass) Troponin I NT-Pro-B Natriuret Pep Total Protein Albumin Globulin Albumin/Globulin Ratio Lipase Urine Color Urine Clarity Urine pH Ur Specific [place] Urine Protein Urine Glucose (UA) Urine Ketones Urine Blood Urine Nitrate Urine Bilirubin Urine Urobilinogen Ur Leukocyte Esterase Urine WBC (Auto) Urine RBC (Auto) Ur Squamous Epith Cells Urine Bacteria Attending/Attestation - Attestation I have personally seen and examined this patient.: Yes I have fully participated in the care of the patient.: Yes I have reviewed all pertinent clinical information: Yes Notes (Text): Patient seen, examined, and case discussed with medical record administrator. Patient seen in the Emergency Room approximately 10AM with the resident. Patient is accompanied by her daughter and nephew at bedside. Patient allows her medical information to be shared with her family at bedside. Patient notes she has 10pm last night epigastric pain which she describes in pain in her chest and abdominal pain with associated vomitting. She reports that episode of pain brought her into the hospital. She reports she had chest pain but it has resolved by the time she has been in the ED. Patient's initial EKG and JENIFER are normal. Patient had underwent CT angio chest/abdomen/pelvis noting for no acute pulmonary embolus but noting early diverticulitis and diffuse distention of appendix; 1.1cm with appendicolith. Patient on the prelim read of the CT chest noted for trace pericardial effusion, however when i lean the patient forward she does not have chest pain, she points her abdomen, right lower quadrant, suprapubic and epigastric on my physical. Patient is unsure when she last took her Aspirin and Losartan but can definitively say Monday she did. She also reports she has had colonoscopy completed this past October with her GI, Dr Hampton and is familiar with the term of diverticulosis; report of endoscopy not available to me in the EMR. She reports family hx of colon cancer , her sister who in her early 40s. Patient reports she has had a stress test in the past but cannot remember the name of puttier; the resident has attempted to call her PMD, Dr. Mable Buck but no copy in her record. Patient has received 2 dose of IV abx. Patient scheduled for surgery approximately 2PM. Patient has completed 2 jenifer which are negative and has completed echocardiogram prior to OR, wherein left ventricular function is normal, ejection fraction normal, no pericardial effusion. EKGs prior to OR are also normal sinus rhythm. Cardiology security operations engineer initially consulted however unable to evaluate prior to OR. I did speak with Dr. Ludwig, if patient requires emergency surgery, does not need cardiac clearance, given patient present with acute appendicitis. Patient's NPO given Labetolol 5mg iV X1, I do suspect her blood pressure worsened by her acute appendicitis pain. Blood pressure: 160/80s when I see the patient in the ED. Given age, diabetes, hypertension, patient is medium risk individual for noncardiac surgery for acute appendicitis and given negative ROMIs, echo to rule pericardial effusion given initial VRAD of CT, and ruled for PE, and EKG show NSR likely this is not chest pain is not ischemic in origin, likely from her acute appendicitis. Assessment/Plan 1) Chest Pain-->resolved * risk factor: hyperglycemia (not DM), htn * chest pain is dull, intermittent, non-radiating. Resolved upon examination, likely secondary to abdominal from acute appendicitis pain * afebrile, BP 180/89 on admission * ED course: Fentanyl 50 mcg x1, labetalol 5 mg x1-->BP improved to 160/80s on exam * EKG: NSR X2s * JENIFER x2 negative * Official echocardiogram available on EMR * Imaging: * CXR: mild interstitial markings, mild bibasilar atelectasis * CTA abdomen/pelvis: LUQ splenic flexure diverticulosis, suspicion of early acute diverticulitis; diffuse distention of appendix, 1.1 cm with appendicolith present * ECHO: LVEF of 70%, no pericardial effusion Medications: * Morphine 2 mg IVP q4 PRN * Morphine 1 mg IVP q4 PRN * Lopressor 5 mg IVP q6 PRN for SBP>160 (hydralazine not available in hospital formulary * 0.9 NS @ 50cc/hr 2) Generalized abdominal pain-- 2/2 acute appendicitis and early diverticulitis * General surgery (Dr. Watt) on board-->help appreciated * -OR this afternoon for laparascopic appendectomy * preoperative/intraoperative/post operative management per surgery * anticoagulation per surgery * Patient is medium-risk individual for noncardiac surgery given age and history of diabetes and HTN. Surgery and anesthesia to discuss risk and benefits of procedure prior to OR. * GI (Dr. Hampton) on board * Patient's personal GI * Has had a colonoscopy with him as recent as October of this year * Family hx of colon cancer, sister, age 40s * CTA abdomen/pelvis: LUQ splenic flexure diverticulosis, suspicion of early acute diverticulitis; diffuse distention of appendix, 1.1 cm with appendicolith present * Lipase: 172 * ED course: rocephin x1, flagyl x1, zofran x1 * Medications * c/w Flagyl 500 mg IVPB q8 * Zosyn 3.375 gm IVPB q6H * Morphine 2 mg IVP q4 prn severe pain * Morphine 1 mg IVP q4 prn moderate pain 3) HTN, uncontrolled * pertinent positive: pain from appendicitis and diverticulitis * BP 180/89 on admission * Patient received labetalol 5 mg x 1 in ED-->BP: 160/80s on exam Medications: * lopresor 5 mg IVP q6 PRN SBP>160 4) Hyperglycemia * Random glucose: 159 * HbA1C: 5.9--->impaired glucose tolerance, patient is NOT diabetic but will need a repeat in 1 year to avoid * low dose ISS * hypoglycemic protocol 5) PPx, Diet, Disposition * NPO * chemical anticoagulation on hold for OR; surgery to determine when to restart * NS 50 cc/hr since patient received contrast CT today to avoid contrast induced nephropathy * When patient is not NPO, will start probiotic and will need to f/u with surgery when to restart patient's aspirin.
[2018-05-08] MEDS: Bupivacaine 0.25% 20 ML INJ IJ ONE ×2 (15:28→15:40)
[2018-05-08] MEDS: Lidocaine/Epinephrine 1% 1:100000 10 ML IJ ONE ×2 (15:28→15:40)
[2018-05-08] MEDS ORDERED: Propofol 10 mg/ml Inj (20 ML) ONE (16:21)
[2018-05-08] MEDS ORDERED: HYDROmorphone 0.5 mg/0.5 ml ISec IVP PRN (16:21)
[2018-05-08] MEDS ORDERED: Neostigmine Methylsulfate 3mg/3ml Syringe IV ONE (16:27)
--- NOTE | 2018-05-08 16:50 | PCM.SURG1 ---
Surgeon's Initial Post Op Note - Surgeon's Notes Surgeon: Dr. Nkechi TOBAR Non Destructive Evaluation Specialist: Dr. Ely Lang DO Anesthesia Administered By: Dr. Taveras Pre-Operative Diagnosis: Acute Appendicitis Operative Findings: Acute appendicitis with Appendicolith Post-Operative Diagnosis: Acute appendicitis Operation Performed: Laporoscopic appendectomy Specimen/Specimens Removed: Appendix Estimated Blood Loss: EBL {In ML}: 15 Blood Products Given: N/A Drains Used: No Drains Post-Op Condition: Good Date of Surgery/Procedure: 05/08/18 Time of Surgery/Procedure: 15:30
[2018-05-08] MEDS ORDERED: Oxycodone/Acetaminophen 5/325 mg Tab PO PRN (16:53)
[2018-05-08] MEDS ORDERED: HYDROmorphone 0.5 mg/0.5 ml ISec ONE (17:12)
--- NOTE | 2018-05-08 20:07 | CARD ---
APPROVED REPORT Date of service: 05/08/2018 EKG Measurement Heart [id number] <Conclusion> Normal sinus rhythm Normal ECG
[2018-05-08] MEDS: metroNIDAZOLE IV 500 mg/100 ml 500 MG/100 ML BAG IVPB SCH (21:47)
[2018-05-08 23:09] LABS: CK-MB 2.3 ng/mL (0.0-3.38); TROPONIN I 0.046 ng/mL (0.00-0.120)
[2018-05-09 00:16] VITALS: RESP 20
[2018-05-09] MEDS: (Novolog) Insulin Aspart, Recombinant 100 u/ml 10 ml vial SC SCH ×3 (00:27→06:29)
[2018-05-09] MEDS: Piperacill/Tazo 3.375gm in Dex 3.375 GM/50 ML BAG IVPB SCH ×3 (00:48→12:29)
[2018-05-09] MEDS: metroNIDAZOLE IV 500 mg/100 ml 500 MG/100 ML BAG IVPB SCH ×2 (01:56→08:58)
--- NOTE | 2018-05-09 03:02 | OP ---
PROCEDURE DATE: 05/08/2018 PREOPERATIVE DIAGNOSES: 1. Acute appendicitis. 2. Postoperative adhesion status post open cholecystectomy. POSTOPERATIVE DIAGNOSES: 1. Acute appendicitis. 2. Postoperative adhesion status post open cholecystectomy. PROCEDURES: 1. Laparoscopic appendectomy. 2. Laparoscopic extensive lysis of adhesion. SURGEON: Vicente Watt MD SOUND EFFECTS PERSON: Ely Lang DO, PGY-2 Resident. TYPE OF ANESTHESIA: General endotracheal tube anesthesia. ESTIMATED BLOOD LOSS: Around 10 mL. DRAINS: None. PATHOLOGY: Appendix was sent to Pathology. COMPLICATIONS: None. INTRAOPERATIVE FINDINGS: The patient had changes of acute appendicitis, and the patient also had appendicolith at the mid body. The patient also had extensive postinfectious and postoperative adhesion due to open cholecystectomy as well as due to the chronic infection. DESCRIPTION OF PROCEDURE: On intraoperative steps, this is a 72-year-old female who was diagnosed with acute appendicitis with severe abdominal pain and the patient was consented for the laparoscopic appendectomy, possible open, brought to the OR, placed supine on the operating table. After induction of the anesthesia, the abdomen was prepped and draped in usual sterile fashion. A supraumbilical transverse incision was made. After incising the skin, subcutaneous tissue, and the fascia, the Alie port was unable to be placed in due to extensive adhesion. Now, the Visiport technique was done. Pneumo was created and now the Alie port was placed. Another 5-mm port was also placed in suprapubic region and a 12-mm port was placed in the left lower quadrant. The appendix was firmly adhesed and first lysis of adhesion was done, and after that the mesoappendix was resected with the Harmonic scalpel. The base of the appendix was resected with ALANNA. There was proper hemostasis in each and every part of the procedure. The pelvis was checked and there was no collection identified. After proper hemostasis, all the ports were taken out under vision. Pneumo was deflated. The umbilical port site was closed in two layers, the fascia with 0 Vicryl interrupted suture, skin with 4-0 Monocryl, and dry sterile dressing was applied. The patient tolerated the procedure well. Count of instrument and gauze was correct. The patient was extubated in the OR and sent to the Postanesthesia Care Unit in stable condition. Vicente Watt MD [facility] # [id number]
[2018-05-09] MEDS: Sodium Chloride 0.9% 1,000 ML IV SCH (05:00)
[2018-05-09 07:42] VITALS: TEMP 98.5; O2SAT 99
--- NOTE | 2018-05-09 08:15 | CP.PCM.CON ---
History of Present Illness - History of Present Illness History of Present Illness: This is a 72 year old woman who was admitted 05/08/2018 with chest and abdominal pain. Patient is known to me from the office. She was recently seen for a colonoscopy on 01/11/2018 which showed mustafa-diverticulosis and a hyperplastic polyp. Patient was admitted yesterday with a four hour history of chest and abdominal pain, nausea and vomiting. Evaluation in the ER included a CT scan which showed distention of the appendix and a 1.1 cm appendicolith. There was also haziness in relation to diverticulosis at the splenic flexure. She was taken to the OR for laparoscopic appendectomy yesterday afternoon. At present, she denies having nausea, vomiting, loss of appetite, difficulty swallowing or heartburn. She has not had a bowel movement since the operation. She denies having rectal bleeding. Review of Systems - Constitutional Constitutional: absent: Chills, Fever - Cardiovascular Cardiovascular: Chest Pain. absent: Palpitations - Respiratory Respiratory: absent: Cough, Dyspnea - Gastrointestinal Gastrointestinal: Abdominal Pain, Nausea, Vomiting. absent: Constipation, Diarrhea, Dysphagia, Heartburn - Genitourinary Genitourinary: absent: Dysuria, Hematuria - Musculoskeletal Musculoskeletal: absent: Back Pain Past Patient History - Infectious Disease Hx of Infectious Diseases: None - Past Medical History & Family History Past Medical History?: Yes - Past Social History Smoking Status: Never Smoked - CARDIAC Hx Hypertension: Yes - PULMONARY Hx Respiratory Disorders: No - NEUROLOGICAL Hx Neurological Disorder: No - HEENT Hx HEENT Problems: No - RENAL Hx Chronic Kidney Disease: No - ENDOCRINE/METABOLIC Hx Endocrine Disorders: No - HEMATOLOGICAL/ONCOLOGICAL Hx Blood Disorders: No - INTEGUMENTARY Hx Dermatological Problems: No - MUSCULOSKELETAL/RHEUMATOLOGICAL Hx Musculoskeletal Disorders: No Hx Falls: No - GASTROINTESTINAL Hx Gall Bladder Disease: Yes - GENITOURINARY/GYNECOLOGICAL Hx Genitourinary Disorders: No - PSYCHIATRIC Hx Substance Use: No - SURGICAL HISTORY Hx Surgeries: Yes Hx Hysterectomy: Yes Other/Comment: GALLSTONES REMOVED - ANESTHESIA Hx Anesthesia: Yes Meds Allergies/Adverse Reactions: Allergies Allergy/AdvReac Type Severity Reaction Status Date / Time No Known Allergies Allergy Unverified 05/08/18 03:39 - Medications Medications: Current Medications Acetaminophen (Tylenol 325mg Tab) 650 mg PO Q6 PRN PRN Reason: Fever >100.4 F Dextrose (Dextrose 50% Inj) 50 ml IVP ONCE PRN PRN Reason: Hypoglycemia Dextrose (Dextrose 50% Inj) 0 ml IV STAT PRN; Protocol PRN Reason: Hypoglycemia Protocol Dextrose (Glutose 15) 0 gm PO ONCE PRN; Protocol PRN Reason: Hypoglycemia Protocol Enoxaparin Sodium (Lovenox) 40 mg SC DAILY COUNTS INCLUDE 234 BEDS AT THE [facility] Glucagon (Glucagen Diagnostic Kit) 0 mg IM STAT PRN; Protocol PRN Reason: Hypoglycemia Protocol Piperacillin Sod/Tazobactam Sod (Zosyn 3.375 Gm Iv Premix) 3.375 gm in 50 mls @ 100 mls/hr IVPB Q6H COUNTS INCLUDE 234 BEDS AT THE [facility] PRN Reason: Protocol Last Admin: 05/09/18 06:07 Dose: 100 mls/hr Metronidazole (Flagyl) 500 mg in 100 mls @ 100 mls/hr IVPB Q8H COUNTS INCLUDE 234 BEDS AT THE [facility] PRN Reason: Protocol Last Admin: 05/09/18 01:56 Dose: 100 mls/hr Sodium Chloride (Sodium Chloride 0.9%) 1,000 mls @ 50 mls/hr IV .Q20H COUNTS INCLUDE 234 BEDS AT THE [facility] Last Admin: 05/09/18 05:00 Dose: 50 mls/hr Dextrose (Dextrose 5% In Water 1000 Ml) 1,000 mls @ 0 mls/hr IV .Q0M PRN; Protocol; Per Protocol PRN Reason: Hypoglycemia Protocol Insulin Aspart (Novolog) 0 unit SC Q6 COUNTS INCLUDE 234 BEDS AT THE [facility] PRN Reason: Protocol Last Admin: 05/09/18 06:29 Dose: Not Given Lisinopril (Zestril) 10 mg PO DAILY COUNTS INCLUDE 234 BEDS AT THE [facility] Metoprolol Tartrate (Lopressor) 5 mg IVP Q6H PRN PRN Reason: Systolic Blood Pressure Morphine Sulfate (Morphine) 1 mg IVP Q4 PRN PRN Reason: Pain, moderate (4-7) Morphine Sulfate (Morphine) 2 mg IVP Q4 PRN PRN Reason: Pain, severe (8-10) Ondansetron HCl (Zofran Inj) 4 mg IVP Q6H PRN PRN Reason: Nausea/Vomiting Oxycodone/Acetaminophen (Percocet 5/325 Mg Tab) 2 tab PO Q4H PRN PRN Reason: Pain, moderate (4-7) Stop: 05/11/18 16:54 Physical Exam - Constitutional Appears: No Acute Distress - Head Exam Head Exam: ATRAUMATIC, NORMOCEPHALIC - Eye Exam Eye Exam: EOMI, PERRL - Neck Exam Neck exam: Negative for: Lymphadenopathy, Thyromegaly - Respiratory Exam Respiratory Exam: NORMAL BREATHING PATTERN. absent: Rales, Rhonchi, Wheezes - Cardiovascular Exam Cardiovascular Exam: REGULAR RHYTHM, +S1, +S2. absent: Gallop, Rubs, Systolic Murmur - GI/Abdominal Exam GI & Abdominal Exam: Normal Bowel Sounds, Soft, Tenderness. absent: Mass, Organomegaly Additional comments: Incisional tenderness - Rectal Exam Rectal Exam: Deferred - Extremities Exam Extremities exam: Negative for: calf tenderness, pedal edema Results - Vital Signs Recent Vital Signs: Last Vital Signs Temp 98.5 F 05/09/18 07:00 Pulse 75 05/09/18 07:00 Resp 20 05/09/18 07:00 BP 131/70 05/09/18 07:00 Pulse Ox 99 05/09/18 07:00 - Labs Result Diagrams: 05/08/18 04:32 05/08/18 04:32 Labs: Laboratory Results - last 24 hr 05/08/18 05/08/18 05/08/18 09:48 10:20 10:20 PT 12.0 INR 1.1 APTT 31 POC Glucose (mg/dL) Hemoglobin A1c 5.7 Total Creatine Kinase 103 CK-MB (Mass) 1.26 Troponin I 0.0390 05/08/18 05/08/18 05/08/18 10:20 17:21 22:20 PT INR APTT POC Glucose (mg/dL) 127 H 117 H Hemoglobin A1c Total Creatine Kinase 166 H CK-MB (Mass) 2.30 Troponin I 0.0460 05/09/18 01:10 PT INR APTT POC Glucose (mg/dL) 110 Hemoglobin A1c Total Creatine Kinase CK-MB (Mass) Troponin I Assessment & Plan (1) Diverticulosis of colon Assessment and Plan: Patient has documented diverticulosis with possible diverticulitis on CT scan. She underwent laparoscopic appendectomy yesterday. Agree with antibiotics. Paitent may follow up in the office. Status: Acute
[2018-05-09 08:37] LABS: BASO % 0.4 % (0.0-2.0); EOS # 0.1 K/uL (0.0-0.7); EOS % 0.7 % (0.0-4.0); HEMOGLOBIN 11.2 g/dL (11.0-16.0); LYMPH # 1.8 K/uL (1.0-4.3); MEAN CELL VOLUME 93.8 fL (81.0-99.0); MEAN CORPUSCULAR HEMOGLOBIN 32.7 pg (27.0-31.0); MEAN CORPUSCULAR HGB CONC 34.8 g/dL (33.0-37.0); MEAN PLATELET VOLUME 8.6 fL (7.2-11.7); MONO # 0.5 K/uL (0.0-0.8); NEUT # 4.7 K/uL (1.8-7.0); NEUT % 66.9 % (50.0-75.0); RBC 3.43 Mil/uL (3.80-5.20); RED CELL DISTRIBUTION WIDTH 14.5 % (11.5-14.5); WHITE BLOOD COUNT 7.1 K/uL (4.8-10.8)
[2018-05-09 09:03] LABS: ALB/GLOB RATIO 0.9 (1.0-2.1); ALBUMIN 3.6 g/dL (3.5-5.0); ALT/SGPT 22 U/L (9-52); AST/SGOT 23 U/L (14-36); BLOOD UREA NITROGEN 6 mg/dL (7-17); CALCIUM 8.7 mg/dl (8.6-10.4); GFR NON-AFRICAN AMERICAN 54
[2018-05-09 09:04] VITALS: BP 146/74; PULSE 86
--- NOTE | 2018-05-09 09:23 | CP.PCM.PN ---
Subjective - Date & Time of Evaluation Date of Evaluation: 05/09/18 Time of Evaluation: 09:23 - Subjective Subjective: PGY-1 Medicine Progress Note for Dr. Schafer Objective - Vital Signs/Intake and Output Vital Signs (last 24 hours): Temp Pulse Resp BP Pulse Ox 98.5 F 86 20 146/74 99 05/09/18 07:00 05/09/18 09:04 05/09/18 07:00 05/09/18 09:04 05/09/18 07:00 Intake and Output: 05/09/18 05/09/18 06:59 18:59 Intake Total 600 Balance 600 - Medications Medications: Current Medications Acetaminophen (Tylenol 325mg Tab) 650 mg PO Q6 PRN PRN Reason: Fever >100.4 F Dextrose (Dextrose 50% Inj) 50 ml IVP ONCE PRN PRN Reason: Hypoglycemia Dextrose (Dextrose 50% Inj) 0 ml IV STAT PRN; Protocol PRN Reason: Hypoglycemia Protocol Dextrose (Glutose 15) 0 gm PO ONCE PRN; Protocol PRN Reason: Hypoglycemia Protocol Enoxaparin Sodium (Lovenox) 40 mg SC DAILY [facility] Glucagon (Glucagen Diagnostic Kit) 0 mg IM STAT PRN; Protocol PRN Reason: Hypoglycemia Protocol Piperacillin Sod/Tazobactam Sod (Zosyn 3.375 Gm Iv Premix) 3.375 gm in 50 mls @ 100 mls/hr IVPB Q6H [facility] PRN Reason: Protocol Last Admin: 05/09/18 06:07 Dose: 100 mls/hr Metronidazole (Flagyl) 500 mg in 100 mls @ 100 mls/hr IVPB Q8H [facility] PRN Reason: Protocol Last Admin: 05/09/18 08:58 Dose: 100 mls/hr Sodium Chloride (Sodium Chloride 0.9%) 1,000 mls @ 50 mls/hr IV .Q20H [facility] Last Admin: 05/09/18 05:00 Dose: 50 mls/hr Dextrose (Dextrose 5% In Water 1000 Ml) 1,000 mls @ 0 mls/hr IV .Q0M PRN; Protocol; Per Protocol PRN Reason: Hypoglycemia Protocol Insulin Aspart (Novolog) 0 unit SC Q6 [facility] PRN Reason: Protocol Last Admin: 05/09/18 06:29 Dose: Not Given Lisinopril (Zestril) 10 mg PO DAILY [facility] Last Admin: 05/09/18 09:04 Dose: 10 mg Metoprolol Tartrate (Lopressor) 5 mg IVP Q6H PRN PRN Reason: Systolic Blood Pressure Morphine Sulfate (Morphine) 1 mg IVP Q4 PRN PRN Reason: Pain, moderate (4-7) Morphine Sulfate (Morphine) 2 mg IVP Q4 PRN PRN Reason: Pain, severe (8-10) Ondansetron HCl (Zofran Inj) 4 mg IVP Q6H PRN PRN Reason: Nausea/Vomiting Oxycodone/Acetaminophen (Percocet 5/325 Mg Tab) 2 tab PO Q4H PRN PRN Reason: Pain, moderate (4-7) Stop: 05/11/18 16:54 - Labs Labs: 05/09/18 08:16 05/09/18 08:16 PT 12.0 SECONDS (9.7-12.2) 05/08/18 09:48 INR 1.1 05/08/18 09:48 APTT 31 SECONDS (21-34) 05/08/18 09:48
[2018-05-09] MEDS ORDERED: Glucagon Recombinant 1 mg Inj IM PRN (09:34)
[2018-05-09] MEDS ORDERED: Dextrose 50% SYRINGE Inj (50 ml) IV PRN (09:34)
[2018-05-09] MEDS ORDERED: Enoxaparin 40 mg Syringe SC SCH (10:00)
[2018-05-09] MEDS ORDERED: (Novolog) Insulin Aspart, Recombinant 100 u/ml 10 ml vial SC SCH (11:30)
--- NOTE | 2018-05-09 13:00 | CARD ---
APPROVED REPORT Date of service: 05/08/2018 EKG Measurement Heart [id number] <Conclusion> Normal sinus rhythm Nonspecific T wave abnormality Abnormal ECG
--- NOTE | 2018-05-09 14:04 | CP.PCM.DIS ---
<Brian Sesay - Last Filed: 05/09/18 14:47> Provider - Provider Date of Admission: 05/08/18 08:13 Attending physician: Adele Schafer DO Time Spent in preparation of Discharge (in minutes): 40 Hospital Course - Lab Results Lab Results: Most Recent Lab Values WBC 7.1 K/uL (4.8-10.8) 05/09/18 08:16 RBC 3.43 Mil/uL (3.80-5.20) L 05/09/18 08:16 Hgb 11.2 g/dL (11.0-16.0) 05/09/18 08:16 Hct 32.2 % (34.0-47.0) L 05/09/18 08:16 MCV 93.8 fL (81.0-99.0) 05/09/18 08:16 MCH 32.7 pg (27.0-31.0) H 05/09/18 08:16 MCHC 34.8 g/dL (33.0-37.0) 05/09/18 08:16 RDW 14.5 % (11.5-14.5) 05/09/18 08:16 Plt Count 168 K/uL (130-400) 05/09/18 08:16 MPV 8.6 fL (7.2-11.7) 05/09/18 08:16 Neut % (Auto) 66.9 % (50.0-75.0) 05/09/18 08:16 Lymph % (Auto) 25.0 % (20.0-40.0) 05/09/18 08:16 [place] % (Auto) 7.0 % (0.0-10.0) 05/09/18 08:16 Eos % (Auto) 0.7 % (0.0-4.0) 05/09/18 08:16 Baso % (Auto) 0.4 % (0.0-2.0) 05/09/18 08:16 Neut # (Auto) 4.7 K/uL (1.8-7.0) 05/09/18 08:16 Lymph # (Auto) 1.8 K/uL (1.0-4.3) 05/09/18 08:16 M[place]ulloch # (Auto) 0.5 K/uL (0.0-0.8) 05/09/18 08:16 Eos # (Auto) 0.1 K/uL (0.0-0.7) 05/09/18 08:16 Baso # (Auto) 0.0 K/uL (0.0-0.2) 05/09/18 08:16 PT 12.0 SECONDS (9.7-12.2) 05/08/18 09:48 INR 1.1 05/08/18 09:48 APTT 31 SECONDS (21-34) 05/08/18 09:48 Sodium 141 mmol/L (132-148) 05/09/18 08:16 Potassium 4.1 mmol/L (3.6-5.2) 05/09/18 08:16 Chloride 104 mmol/L (98-107) 05/09/18 08:16 Carbon Dioxide 28 mmol/L (22-30) 05/09/18 08:16 Anion Gap 13 (10-20) 05/09/18 08:16 BUN 6 mg/dL (7-17) L 05/09/18 08:16 Creatinine 1.0 mg/dL (0.7-1.2) 05/09/18 08:16 Est GFR ( Amer) > 60 05/09/18 08:16 Est GFR (Non-Af Amer) 54 05/09/18 08:16 POC Glucose (mg/dL) 110 mg/dL (65-110) 05/09/18 01:10 Random Glucose 105 mg/dL (65-105) 05/09/18 08:16 Hemoglobin A1c 5.7 % (4.2-6.5) 05/08/18 10:20 Calcium 8.7 mg/dl (8.6-10.4) 05/09/18 08:16 Phosphorus 3.8 mg/dL (2.5-4.5) 05/09/18 08:16 Magnesium 1.6 mg/dL (1.6-2.3) 05/09/18 08:16 Total Bilirubin 0.9 mg/dL (0.2-1.3) 05/09/18 08:16 AST 23 U/L (14-36) 05/09/18 08:16 ALT 22 U/L (9-52) 05/09/18 08:16 Alkaline Phosphatase 58 U/L (38-126) 05/09/18 08:16 Total Creatine Kinase 166 U/L (30-135) H 05/08/18 22:20 CK-MB (Mass) 2.30 ng/mL (0.0-3.38) 05/08/18 22:20 Troponin I 0.0460 ng/mL (0.00-0.120) 05/08/18 22:20 NT-Pro-B Natriuret Pep 66.0 pg/mL (0-900) 05/08/18 04:32 Total Protein 7.4 g/dL (6.3-8.3) 05/09/18 08:16 Albumin 3.6 g/dL (3.5-5.0) 05/09/18 08:16 Globulin 3.8 gm/dL (2.2-3.9) 05/09/18 08:16 Albumin/Globulin Ratio 0.9 (1.0-2.1) L 05/09/18 08:16 Lipase 172 U/L (23-300) 05/08/18 04:32 Urine Color Yellow (YELLOW) 05/08/18 04:32 Urine Clarity Clear (Clear) 05/08/18 04:32 Urine pH 8.0 (5.0-8.0) 05/08/18 04:32 Ur Specific [place] 1.015 (1.003-1.030) 05/08/18 04:32 Urine Protein 1+ mg/dL (NEGATIVE) H 05/08/18 04:32 Urine Glucose (UA) Normal mg/dL (Normal) 05/08/18 04:32 Urine Ketones Trace mg/dL (NEGATIVE) 05/08/18 04:32 Urine Blood 1+ (NEGATIVE) H 05/08/18 04:32 Urine Nitrate Negative (NEGATIVE) 05/08/18 04:32 Urine Bilirubin Negative (NEGATIVE) 05/08/18 04:32 Urine Urobilinogen Normal mg/dL (0.2-1.0) 05/08/18 04:32 Ur Leukocyte Esterase Neg Gerry/uL (Negative) 05/08/18 04:32 Urine WBC (Auto) < 1 /hpf (0-5) 05/08/18 04:32 Urine RBC (Auto) 6 /hpf (0-3) H 05/08/18 04:32 Ur Squamous Epith Cells < 1 /hpf (0-5) 05/08/18 04:32 Urine Bacteria Occ (<OCC) H 05/08/18 04:32 - Hospital Course Hospital Course: Ms. Ibrahim is a 72 year old obese female with past medical history of hypertension presenting to the ED with acute onset L sided chest pain and generalized abdominal pain/discomfort predominately on the L. As per patient, the chest/abdominal pain began the night prior to admission around midnight, was described as dull and intermittent, non-radiating, rated 6/10. She went to pass a bowel movement shortly after the onset of the pain, passed the bowel movement normally, but had 1 episode of vomiting brought on by her abdominal discomfort. She also endorses associated nausea and 1 additional episode of vomiting upon arrival. Emesis consisted of previous meal and was non- bilious, non-bloody. Of note, patient states she had a similar episode once ~ 2 years ago that resolved on its own. This episode has lasted longer and is not alleviated by any positional changes. She denies fevers but endorses feeling a little chilled. She also endorses a mild headache. No changes in vision, dizziness or lightheadedness, numbness or tingling, diarrhea/constipation, shortness of breath, cough, dysuria, or changes in stool. Patient's initial EKG and JENIFER panel were normal. CTA of chest/abdomen/pelvis performed demonstrated no acute pulmonary embolus but noted early diverticulitis and diffuse distention of appendix, 1.1cm with appendicolith. She received Rocephin x1 and Zosyn x 1 while in the ED, fentanyl x 1 for pain, and labetalol x 1 for high blood pressure. She was scheduled for a laprascopic appendectomy procedure at 2PM. Patient completed 2 JENIFER panels prior to OR transport, which were negative. Echocardiogram done prior to OR demonstrated normal L ventricular function, normal ejection fraction, and no pericardial effusion. EKGs prior to OR were also normal sinus rhythm. Given age, diabetes, hypertension, patient is medium risk individual for noncardiac surgery for acute appendicitis. Cardiology salesperson [employer]ings (Dr. Munroe) was initially consulted for clearance prior to surgery; however , he was unable to evaluate the patient prior to OR. Per Dr. Munroe, if the patient required emergency surgery, she does not need cardiac clearance given patient presented with acute appendicitis. Laprascopic appendectomy was performed successfully with no complications. Patient was monitored on the floor and placed on Flagyl 500 mg IVP q8 and Zosyn 3.375 gm IVPB q6. Morphine 2 mg IVP q4 was put on board for pain, NS cc/hr since patient received a CT to avoid contrast induced nephropathy, and lopressor 5 mg IVP q 6 PRN for SBP > 160. Patient also had elevated glucose at 159 and was placed on a low dose insulin sliding scale with hypoglycemic protocol. Her HBA1C was 5.9 however and was taken off insulin sliding scale upon discharge. She was instructed on diet modification in order to reduce the risk of diabetes. Patient remained afebrile on the floor, with no elevated WBC or source of infection. Her abdominal pain resolved post-surgery and she tolerated her diet well. She was cleared from a surgical perspective. Patient is medically stable for discharge, as per Dr. Schafer. She was instructed to follow up with her primary care doctor within 1-2 weeks of discharge. She was also instructed to follow up with the GI doctor (Dr. Hampton) within a week of discharge for colonoscopy follow-up. She was recently seen for a colonoscopy on 01/11/2018 which showed mustafa-diverticulosis and a hyperplastic polyp. Patient to continue home meds, as prescribed. She has stated that she has refills at home and does not need any pain medications. Patient will be discharged with the following antibiotics to complete a 10 day course, to be taken as prescribed: Flagyl 500 mg PO twice daily for 8 more days Please note: Do NOT consume alcohol with Flagyl, as this will cause adverse side effects including nausea, vomiting, flushing, dizziness, throbbing headaches, chest and/or abdominal discomfort. Ciprofloxacin 500 mg PO twice daily for 8 more days Please note: A side of effect of ciprofloxacin includes inflammation of tendons. If you experience pain or tenderness of your joints or tendons, please refrain from taking Ciprofloxacin. The following is a summary of hospital course. For full detail, please refer to EMR. Discharge Exam - Head Exam Head Exam: ATRAUMATIC, NORMOCEPHALIC - Eye Exam Eye Exam: EOMI, Normal appearance Pupil Exam: NORMAL ACCOMODATION - ENT Exam ENT Exam: Mucous Membranes Moist, Normal Exam - Neck Exam Neck exam: Normal Inspection - Respiratory Exam Respiratory Exam: Clear to PA & Lateral, NORMAL BREATHING PATTERN, UNREMARKABLE. absent: Rales, Rhonchi, Wheezes, Stridor - Cardiovascular Exam Cardiovascular Exam: REGULAR RHYTHM, +S1, +S2 - GI/Abdominal Exam GI & Abdominal Exam: Normal Bowel Sounds, Soft. absent: Distended, Firm, Guarding, Rebound, Rigid, Tenderness Additional comments: Incisional tenderness. Surgical dressings x 4 are clean, dry, and intact - Extremities Exam Extremities exam: normal capillary refill, normal inspection, pedal pulses present - Neurological Exam Neurological exam: Alert, CN II-XII Intact, Oriented x3 - Psychiatric Exam Psychiatric exam: Normal Affect, Normal Mood - Skin Skin Exam: Dry, Intact, Normal Color, Warm Discharge Plan - Discharge Medications Prescriptions: Ciprofloxacin/Ciprofloxa HCl [Cipro Xr 500 mg Tablet] 500 mg PO BID #16 tbmp.24hr Metronidazole [Flagyl] 500 mg PO BID #16 tablet - Follow Up Plan Condition: GOOD Disposition: HOME/ ROUTINE Instructions: Ciprofloxacin (Systemic), Heart Healthy Diet, Appendicitis, Adult (DC), Metronidazole (Systemic), Appendectomy, Laparoscopic Surgery (DC), Managing Pain After Surgery Additional Instructions: Patient is medically stable for discharge, per Dr. Schafer. Patient is instructed to follow up with her primary care doctor within 1-2 weeks of discharge. Please also follow up with your blowing weasand (Dr. Hampton) within a week of discharge for colonoscopy follow-up. Patient to continue home meds, as prescribed. She has stated that she refills at home and does not need any pain medications. Patient will be discharged with the following antibiotics to complete a 10 day course, to be taken as prescribed : Flagyl 500 mg PO twice daily for 8 more days Please note: Do NOT consume alcohol with Flagyl, as this will cause adverse side effects including nausea, vomiting, flushing, dizziness, throbbing headaches, chest and/or abdominal discomfort. Ciprofloxacin 500 mg PO twice daily for 8 more days Please note: A side of effect of ciprofloxacin includes inflammation of tendons. If you experience pain or tenderness of your joints or tendons, please refrain from taking Ciprofloxacin. Please take care and be well. Referrals: Vicente Watt MD [Staff Provider] - Joaquim Hampton MD [Staff Provider] - <Adele Schafer V - Last Filed: 05/10/18 07:42> Provider - Provider Date of Admission: 05/08/18 08:13 Attending physician: Adele Schafer, DO Hospital Course - Lab Results Lab Results: Micro Results 05/08/18 12:21 Urine,Catheterized Urine Culture - Final No Growth (<1,000 CFU/ML) 05/08/18 10:45 Blood Blood Culture - Preliminary NO GROWTH AFTER 24 HOURS 05/08/18 10:15 Blood Blood Culture - Preliminary NO GROWTH AFTER 24 HOURS Most Recent Lab Values WBC 7.1 K/uL (4.8-10.8) 05/09/18 08:16 RBC 3.43 Mil/uL (3.80-5.20) L 05/09/18 08:16 Hgb 11.2 g/dL (11.0-16.0) 05/09/18 08:16 Hct 32.2 % (34.0-47.0) L 05/09/18 08:16 MCV 93.8 fL (81.0-99.0) 05/09/18 08:16 MCH 32.7 pg (27.0-31.0) H 05/09/18 08:16 MCHC 34.8 g/dL (33.0-37.0) 05/09/18 08:16 RDW 14.5 % (11.5-14.5) 05/09/18 08:16 Plt Count 168 K/uL (130-400) 05/09/18 08:16 MPV 8.6 fL (7.2-11.7) 05/09/18 08:16 Neut % (Auto) 66.9 % (50.0-75.0) 05/09/18 08:16 Lymph % (Auto) 25.0 % (20.0-40.0) 05/09/18 08:16 [place]ull[place] % (Auto) 7.0 % (0.0-10.0) 05/09/18 08:16 Eos % (Auto) 0.7 % (0.0-4.0) 05/09/18 08:16 Baso % (Auto) 0.4 % (0.0-2.0) 05/09/18 08:16 Neut # (Auto) 4.7 K/uL (1.8-7.0) 05/09/18 08:16 Lymph # (Auto) 1.8 K/uL (1.0-4.3) 05/09/18 08:16 [place] # (Auto) 0.5 K/uL (0.0-0.8) 05/09/18 08:16 Eos # (Auto) 0.1 K/uL (0.0-0.7) 05/09/18 08:16 Baso # (Auto) 0.0 K/uL (0.0-0.2) 05/09/18 08:16 PT 12.0 SECONDS (9.7-12.2) 05/08/18 09:48 INR 1.1 05/08/18 09:48 APTT 31 SECONDS (21-34) 05/08/18 09:48 Sodium 141 mmol/L (132-148) 05/09/18 08:16 Potassium 4.1 mmol/L (3.6-5.2) 05/09/18 08:16 Chloride 104 mmol/L (98-107) 05/09/18 08:16 Carbon Dioxide 28 mmol/L (22-30) 05/09/18 08:16 Anion Gap 13 (10-20) 05/09/18 08:16 BUN 6 mg/dL (7-17) L 05/09/18 08:16 Creatinine 1.0 mg/dL (0.7-1.2) 05/09/18 08:16 Est GFR ( Amer) > 60 05/09/18 08:16 Est GFR (Non-Af Amer) 54 05/09/18 08:16 POC Glucose (mg/dL) 102 mg/dL (65-110) 05/09/18 06:21 Random Glucose 105 mg/dL (65-105) 05/09/18 08:16 Hemoglobin A1c 5.7 % (4.2-6.5) 05/08/18 10:20 Calcium 8.7 mg/dl (8.6-10.4) 05/09/18 08:16 Phosphorus 3.8 mg/dL (2.5-4.5) 05/09/18 08:16 Magnesium 1.6 mg/dL (1.6-2.3) 05/09/18 08:16 Total Bilirubin 0.9 mg/dL (0.2-1.3) 05/09/18 08:16 AST 23 U/L (14-36) 05/09/18 08:16 ALT 22 U/L (9-52) 05/09/18 08:16 Alkaline Phosphatase 58 U/L (38-126) 05/09/18 08:16 Total Creatine Kinase 166 U/L (30-135) H 05/08/18 22:20 CK-MB (Mass) 2.30 ng/mL (0.0-3.38) 05/08/18 22:20 Troponin I 0.0460 ng/mL (0.00-0.120) 05/08/18 22:20 NT-Pro-B Natriuret Pep 66.0 pg/mL (0-900) 05/08/18 04:32 Total Protein 7.4 g/dL (6.3-8.3) 05/09/18 08:16 Albumin 3.6 g/dL (3.5-5.0) 05/09/18 08:16 Globulin 3.8 gm/dL (2.2-3.9) 05/09/18 08:16 Albumin/Globulin Ratio 0.9 (1.0-2.1) L 05/09/18 08:16 Lipase 172 U/L (23-300) 05/08/18 04:32 Urine Color Yellow (YELLOW) 05/08/18 04:32 Urine Clarity Clear (Clear) 05/08/18 04:32 Urine pH 8.0 (5.0-8.0) 05/08/18 04:32 Ur Specific [place] 1.015 (1.003-1.030) 05/08/18 04:32 Urine Protein 1+ mg/dL (NEGATIVE) H 05/08/18 04:32 Urine Glucose (UA) Normal mg/dL (Normal) 05/08/18 04:32 Urine Ketones Trace mg/dL (NEGATIVE) 05/08/18 04:32 Urine Blood 1+ (NEGATIVE) H 05/08/18 04:32 Urine Nitrate Negative (NEGATIVE) 05/08/18 04:32 Urine Bilirubin Negative (NEGATIVE) 05/08/18 04:32 Urine Urobilinogen Normal mg/dL (0.2-1.0) 05/08/18 04:32 Ur Leukocyte Esterase Neg Gerry/uL (Negative) 05/08/18 04:32 Urine WBC (Auto) < 1 /hpf (0-5) 05/08/18 04:32 Urine RBC (Auto) 6 /hpf (0-3) H 05/08/18 04:32 Ur Squamous Epith Cells < 1 /hpf (0-5) 05/08/18 04:32 Urine Bacteria Occ (<OCC) H 05/08/18 04:32 Attending/Attestation - Attestation I have personally seen and examined this patient.: Yes I have fully participated in the care of the patient.: Yes I have reviewed all pertinent clinical information, including history, physical exam and plan: Yes Notes (Text): This is a late computer entry for 05/09/2018. Patient seen, examined, case discussed with medical records supervisor. Patient seen at bedside this morning with medical team. Patient is tolerating diet and started by surgery postoperative. Patient denies acute abdominal complaints. Patient denies acute chest pain complaints. Patient reports she has peak postoperative. Discussed with surgery patient is stable from their standpoint for discharge home post operative follow per surgery direction. Discussed with patient's GI no further recommendations can follow up with him following hospitalization with oral antibiotics. Patient provided prescriptions for Cipro 500 by mouth twice a day for 8 days as well as Flagyl 500 by mouth twice a day for 8 days to complete 10 day course of antibiotics. Patient follow-up with GI and surgery post hospitalization. Patient's cardiac enzymes negative 3. This is a brief summary of patient's hospitalization please refer to EMR for full detail record. Discharge diagnoses: 1) Chest Pain-->resolved * risk factor: hyperglycemia (not DM), htn * chest pain is dull, intermittent, non-radiating. Resolved upon examination, likely secondary to abdominal from acute appendicitis pain * afebrile, BP 180/89 on admission * ED course: Fentanyl 50 mcg x1, labetalol 5 mg x1-->BP improved to 160/80s on exam * EKG: NSR X2s * JENIFER x3 negative * Official echocardiogram available on EMR * Imaging: * CXR: mild interstitial markings, mild bibasilar atelectasis * CTA abdomen/pelvis: LUQ splenic flexure diverticulosis, suspicion of early acute diverticulitis; diffuse distention of appendix, 1.1 cm with appendicolith present * ECHO: LVEF of 70%, no pericardial effusion 2) Generalized abdominal pain-- 2/2 acute appendicitis and early diverticulitis stable * General surgery (Dr. Watt) on board-->help appreciated * Status post laparascopic appendectomy * preoperative/intraoperative/post operative management per surgery * anticoagulation per surgery * Postsurgical discharge instructions * From surgery standpoint stable for discharge * Patient is medium-risk individual for noncardiac surgery given age and history of diabetes and HTN. Surgery and anesthesia to discuss risk and benefits of procedure prior to OR. * GI (Dr. Hampton) on board * May follow-up with him postop with oral antibiotics. * Patient has recently colonoscopy in December noted for hyperplastic polyps and diverticulosis. * CTA abdomen/pelvis: LUQ splenic flexure diverticulosis, suspicion of early acute diverticulitis; diffuse distention of appendix, 1.1 cm with appendicolith present * Patient discharge for 8 day course of Cipro and Flagyl to complete ten-day course of antibiotics 3) HTN- stable * Improved: Patient restart home medication 4) impaired glucose tolerance chronic stable * Random glucose: 159 * HbA1C: 5.9--->impaired glucose tolerance, patient is NOT diabetic but will need a repeat in 1 year to avoid * low dose ISS * hypoglycemic protocol * A she is aware to make dietary changes to avoid overt diabetes in the next coming year.
[2018-05-10] MEDS ORDERED: Pneumococcal 23-Valent Vaccine IM ONE (10:00)
== END 2018-05-09 13:40 | disposition home or self-care (01) | DRG 336 ==
LOC: C.ER 03:28 → C.9E 08:13 → C.9S 12:46 → C.9E 14:07 → C.6T 14:49
PROVIDERS: ADMIT Hospitalist; ATTEND Hospitalist
PROC: 0DNW4ZZ Release Peritoneum, Percutaneous Endoscopic Approach (ICD-10-PCS; 2018-05-08)
PROC: 0DTJ4ZZ Resection of Appendix, Percutaneous Endoscopic Approach (ICD-10-PCS; principal; 2018-05-08 12:00)
DX: K35.80 Unspecified acute appendicitis (principal); K57.92 Diverticulitis of intestine, part unspecified, without perforation or abscess without bleeding; J98.11 Atelectasis; Z68.41 Body mass index [BMI] 40.0-44.9, adult; K59.00 Constipation, unspecified; K42.9 Umbilical hernia without obstruction or gangrene; K66.0 Peritoneal adhesions (postprocedural) (postinfection); J44.9 Chronic obstructive pulmonary disease, unspecified; I10 Essential (primary) hypertension; E66.9 Obesity, unspecified; E11.9 Type 2 diabetes mellitus without complications

== ENCOUNTER 2018-12-03 10:04 | Outpatient (CLI) | payer MEDICARE, OTHER | END 2018-12-03 10:05 | disposition home or self-care (01) | LOC: C.MAMMO 10:04 | DX: Z12.31 Encounter for screening mammogram for malignant neoplasm of breast (principal) ==